=== PATIENT | male | born 1950 | race Caucasian/White ===

== ENCOUNTER 2022-09-08 09:45 | Day surgery (SDC) | payer OTHER, MEDICARE ==
[~2022-09-08] VITALS: Ht 180.3 cm; Wt 113.6 kg
--- NOTE | 2022-09-08 11:11 | NUR ---
PT RESTING IN BED. INFORMED THAT IT WOULD BE A WHILE LONGER OF A WAIT. PT VERBALIZED UNDERSTANDING. DENIES FURTHER NEEDS. CALL LIGHT WITHIN REACH.
--- NOTE | 2022-09-08 12:00 | NUR ---
PT ON PHONE TALKING TO HIS RIDE UPON ENTRY TO ROOM. PT APPEARS TO BE FRUSTRATED AND STATES HE IS UPSET THAT THE WAIT IS TAKING SO LONG. PT UPDATED ON STATUS OF PROCEDURE AND THAT THERE ARE TWO PROCEDURES AHEAD OF HIM, THAT IT COULD BE ANOTHER HOUR AND A HALF WAIT BEFORE HE GOES BACK. PT SIGHS IN FRUSTRATION. THIS RN ASKED IF PT WANTS TO LEAVE. PT STATES HE IS GOING TO STAY BECAUSE HE ALREADY DID HIS PREP. PT STATES HE IS HUNGRY AND HASN'T HAD COFFEE. THIS RN NODDED IN CONSOLANCE. THIS RN INFORMS THE PT SHE IS SORRY AND THAT SHE WILL UPDATE PT IF ANYTHING CHANGES. PT REQUESTING TO WATCH TV. REMOTE GIVEN TO PT. PT WATCHING TV. CALL LIGHT WITHIN REACH. PT GIVEN ANOTHER WARM BLANKET.
--- NOTE | 2022-09-08 16:10 | NUR ---
09/08/22 1610 Kalyan,Ana 1551 PT ARRIVED TO PACU ON 4L NC, PT ASLEEP. 1557 PT WOKE TO TACTILE STIMULI AND DENIES CONCERNS. PT REORIENTED TO PACU AND DENIES PAIN AND NAUSEA. 1558 PT ROLLED TO BACK AND HOB INCREASED. O2 REMOVED. 1605 MD AT BEDSIDE TALKING TO PT.
--- NOTE | 2022-09-12 17:58 | PATH ---
[facility] [address] [place], [place] [address] Signed SPECIMEN(S): A ASCENDING COLON POLYP SPECIMEN(S): B CECUM POLYP SPECIMEN(S): C COLON POLYP AT 40 CM SPECIMEN(S): D COLON POLYP AT 20 CM SPECIMEN(S): E RECTAL POLYP SPECIMEN(S): F RECTAL POLYP SPECIMEN SOURCE: A. ASCENDING COLON POLYP B. CECUM POLYP C. COLON POLYP AT 40 CM D. COLON POLYP AT 20 CM E. RECTAL POLYP F. RECTAL POLYP CLINICAL HISTORY: History of polyps FINAL PATHOLOGIC DIAGNOSIS: A. Ascending colon polyp, polypectomy: - Fragments of tubular adenoma. - Negative for high-grade dysplasia and malignancy. B. Cecum polyp, polypectomy: - Fragments of tubular adenoma. - Negative for high-grade dysplasia and malignancy. C. Colon polyp at 40 cm, polypectomy: - Tubular adenoma. - Negative for high-grade dysplasia and malignancy. - Dysplastic changes do not appear to extend to the resection margin. D. Colon polyp at 20 cm, polypectomy: - Tubular adenoma. - Negative for high-grade dysplasia and malignancy. - Dysplastic changes do not appear to extend to the resection margin. E. Rectum polyps #5, polypectomy: - Fragments of hyperplastic polyp. F. Rectal polyp #6, polypectomy: - Fragments of hyperplastic polyp. DF:llc:[id number] MICROSCOPIC EXAMINATION: Histologic sections of all submitted blocks are examined by light microscopy. PATIENT NAME: BETTIEMARIA INES TRAN PATHOLOGY DATE OF : 52 REPORT #: [id number] PHYSICIAN: ELVA RODRIGUEZ PCP: NO PRIMARY CARE PHYSICIAN REPORT IS CONFIDENTIAL AND NOT TO BE RELEASED WITHOUT AUTHORIZATION [facility] [address] [place], [place] [address] Signed These findings, together with the gross examination, support the pathologic diagnosis. GROSS DESCRIPTION: A. The specimen, labeled and designated "Bettie, ascending colon polyp," is received in formalin and consists of four marc soft tissue fragments, ranging from 0.1 to 0.4 cm. Entirely submitted in (A1). B. The specimen, labeled and designated "Bettie, cecum polyp," is received in formalin and consists of six marc soft tissue fragments, ranging from 0.1 to 0.3 cm. Entirely submitted in (B1). C. The specimen, labeled and designated "Alexandre, colon polyp at 40 cm," is received in formalin and consists of one polyp of yellow-brown soft tissue (1.0 x 0.7 x 0.5 cm). The resection margin is inked blue, and the tissue is trisected. The specimen is submitted entirely in cassette (C1). D. The specimen, labeled and designated "Alexandre, colon polyp at 20 cm," is received in formalin and consists of one polyp of yellow-marc soft tissue (0.7 x 0.7 x 0.5 cm). The resection margin is inked [place] green, and the tissue is trisected. The specimen is submitted entirely in cassette (D1). E. The specimen, labeled and designated "Alexandre, rectum polyps, #5," is received in formalin and consists of seven marc soft tissue fragments, ranging from 0.1 to 0.2 cm. Entirely submitted in (E1). F. The specimen, labeled and designated "Alexandre, rectal polyp, #6," is received in formalin and consists of eight marc soft tissue fragments, ranging from 0.1 to 0.3 cm. Entirely submitted in (F1). VB (under the direct supervision of a pathologist) The Gross Description was prepared using a voice recognition system. The report was reviewed for accuracy; however, sound-alike word errors, addition and/or deletions may occur. If there is any question about this report, please contact Client Services. PERFORMING LABORATORY: The technical component was performed by [facility], [address] [place] [id number] (CLIA# [id number]). The professional interpretation was performed by [facility], [facility], [address] [place] [place] [address] (CLIA#: [id number]). Diagnostician: Warren Marina DO Pathologist PATIENT NAME: MARIA INES ALEXANDRE PATHOLOGY DATE OF : 52 REPORT #: [id number] PHYSICIAN: ELVA RODRIGUEZ PCP: NO PRIMARY CARE PHYSICIAN REPORT IS CONFIDENTIAL AND NOT TO BE RELEASED WITHOUT AUTHORIZATION [facility] [address] [facility] [place], [place] [address] Signed Electronically Signed 09/12/2022 Copies: ~ PATIENT NAME: MARIA INES ALEXANDRE PATHOLOGY DATE OF : 52 REPORT #: [id number] PHYSICIAN: ELVA PATHOLOGY PCP: NO PRIMARY CARE PHYSICIAN REPORT IS CONFIDENTIAL AND NOT TO BE RELEASED WITHOUT AUTHORIZATION
--- NOTE | 2022-09-13 13:20 | OR ---
[facility] [address] [place], [place] [address] Signed DATE OF OPERATION: 09/08/2022 SURGEON: Michelle Morales MD PREOPERATIVE DIAGNOSES: 1. History of a flat polyp right colon 2010: 2. Colon surveillance. POSTOPERATIVE DIAGNOSES: 1. Small polyp right colon and multiple polyps of rectum. 2. Large pedunculated polyp x2, sigmoid. PROCEDURE: Total colonoscopy to cecum with hot snare polypectomy x3, cold morcellation polypectomy x6.. ANESTHESIA: Intravenous sedation, propofol infusion; Lennie Hughes CRNA INDICATIONS: This 71-year-old white man is a patient of ARLETTE Rizzo in [place] and ARLETTE Mahmood in [place] at the [facility]. The patient underwent colonoscopy by nd in 2009, which showed a flat polyp of the right colon which was excised completely. He has no symptoms of bleeding, diarrhea or constipation at this time. He has no family history of colon cancer. He is admitted at this time to undergo colonoscopy. He understands the risk of bleeding, infection, and perforation. FINDINGS: The prep was excellent. Complete colonoscopy was undertaken to the cecum without question. He had two areas of endoscopic tattoo dye in the right colon closer to the cecum with no evidence of recurrent polyp there. He had a small polyp of the right colon, which was excised with cold snare technique. There were additional polyps including one in the sigmoid that was large and pedunculated, excised with hot snare polypectomy technique and another somewhat smaller polyp in the distal sigmoid also excised in that manner. In the rectum, there were several small polyps, all of them excised with cold morcellation technique. There was no evidence of diverticulosis or colitis. DESCRIPTION OF PROCEDURE: The patient was brought to the endoscopy suite and placed in the lateral decubitus Electronically Signed By: MICHELLE MORALES MD 09/13/22 1320 PATIENT NAME: MARIA INES KHAN OPERATIVE REPORT DATE OF : 52 REPORT #: [id number] PHYSICIAN: MICHELLE MORALES MD PCP: NO PRIMARY CARE PHYSICIAN REPORT IS CONFIDENTIAL AND NOT TO BE RELEASED WITHOUT AUTHORIZATION [facility] [address] [place], [place] [address] Signed position, given intravenous sedation with propofol infusional sedation technique. Digital rectal examination was normal. Olympus video colonoscope was passed in the rectum and manipulated throughout the colon ultimately intubating the right colon. Endoscopic tattoos were noted in the mucosal layer in the right colon and another more proximal (near cecum) area. There was no evidence of recurrent polyp in those areas of prior polypectomy. A small polyp was noted of the cecum, which was excised with cold morcellation technique. Another similar such polyp was noted as well. The scope was then withdrawn and a small polyp was noted at the right colon, which was excised. Further withdrawal into the left colon and sigmoid showed a relatively large pedunculated adenomatous polyp. This was excised with hot snare polypectomy technique and passed for pathology. Another similar such polyp was noted, though slightly smaller in size. Further withdrawal showed at the rectosigmoid, multiple small polyps, some of them hyperplastic, some of them adenomatous, all of them excised with cold morcellation technique. Retroflexed view was otherwise normal. Scope was removed and the patient was taken to the recovery room in good condition. CONCLUDING DIAGNOSIS: Polyps excised by snare technique x3 and cold morcellation technique x6. PLAN: Recommend repeat colonoscopy in three years based on these findings, sooner if symptoms should occur of course. He will return to the ongoing care of ARLETTE Loredo as well as ARLETTE Mahmood at [place], [place]. Michelle Morales MD /JOHNL /[id number] cc: ARLETTE Mahmood PA Electronically Signed By: MICHELLE MORALES MD 09/13/22 1320 PATIENT NAME: MARIA INES KHAN OPERATIVE REPORT DATE OF : 52 REPORT #: [id number] PHYSICIAN: MICHELLE MORALES MD PCP: NO PRIMARY CARE PHYSICIAN REPORT IS CONFIDENTIAL AND NOT TO BE RELEASED WITHOUT AUTHORIZATION [facility] [address] [facility] [place] [address] Signed Copies: ROBERT ORTEGA ~ Electronically Signed By: MICHELLE MORALES MD 09/13/22 1320 PATIENT NAME: MARIA INES KHAN OPERATIVE REPORT DATE OF : 52 REPORT #: [id number] PHYSICIAN: MICHELLE MORALES MD PCP: NO PRIMARY CARE PHYSICIAN REPORT IS CONFIDENTIAL AND NOT TO BE RELEASED WITHOUT AUTHORIZATION
== END 2022-09-08 16:25 | disposition home or self-care (01) ==
LOC: DS 09:45 → OPS 09:45
PROVIDERS: ATTEND Surgery
PROC: 0DBN8ZZ Excision of Sigmoid Colon, Via Natural or Artificial Opening Endoscopic (ICD-10-PCS; 2022-09-08)
PROC: 0DBM8ZZ Excision of Descending Colon, Via Natural or Artificial Opening Endoscopic (ICD-10-PCS; 2022-09-08)
PROC: 0DBH8ZZ Excision of Cecum, Via Natural or Artificial Opening Endoscopic (ICD-10-PCS; 2022-09-08)
PROC: 0DBK8ZZ Excision of Ascending Colon, Via Natural or Artificial Opening Endoscopic (ICD-10-PCS; principal; 2022-09-08 11:00)
DX: Z12.11 Encounter for screening for malignant neoplasm of colon (principal); Z86.010 Personal history of colon polyps; M99.07 Segmental and somatic dysfunction of upper extremity; D12.2 Benign neoplasm of ascending colon; D12.0 Benign neoplasm of cecum; K62.1 Rectal polyp
CPT/HCPCS: 00811; J0690; J2704; J7121